=== PATIENT | male | born 1955 | race American Indian/Alaskan Native ===

== ENCOUNTER 2021-05-24 18:23 | Emergency (ER) | payer MEDICARE ==
[2021-05-24] MEDS ORDERED: LORazepam 1 MG TAB PO ONE (23:10)
--- NOTE | 2021-05-24 23:13 | Event Note ---
ED Screening Note Date of service: 05/24/21 Time: 23:11 ED Screening Note: Patient is a 66-year-old -[place] male with a history of hepatitis C and chronic seizures and who takes Dilantin and Tegretol presents to the ED with for evaluation after he had a witnessed single seizure episode at a gas station about 4 hours ago. Patient states that he had gone to the gas station to purchase some items when he developed seizures which was witnessed by the bystanders, and who called EMS to bring him to the ED for evaluation. Patient states that he has not taken his medications in the last 3 days after he was released from [facility] where he had been. Patient states that while in [facility], he was taking his medications but prior to being released he was never given any medications. Patient states that he has an appointment with his neurologist at [facility] on Wednesday, May 25, 2021 for further evaluation and to write him his prescriptions for seizures. Patient however denies headache, dizziness, syncope, chest pain, shortness of breath, fever, chills, nausea and vomiting, cough or abdominal pain, change in vision or head injury. This initial assessment/diagnostic orders/clinical plan/treatment(s) is/are subject to change based on patients health status, clinical progression and re- assessment by fellow clinical providers in the ED. Further treatment and workup at subsequent clinical providers discretion. Patient/guardian urged not to elope from the ED as their condition may be serious if not clinically assessed and managed. Initial orders include: CBC, CMP, Dilantin level, Dilantin 300 mg p.o. x1
[2021-05-24] MEDS ORDERED: PHENobarbitaL 130 MG/ML VIAL IV ONE (23:34)
[2021-05-24 23:37] LABS: Basophils # (Auto) 0.1 K/mm3 (0.0-0.1); Lymphocytes # (Auto) 2.5 K/mm3 (1.2-5.4); Lymphocytes % (Auto) 25.9 % (13.4-35.0); Mean Corpuscular HGB Conc 36 % (32-34); Mean Corpuscular Volume 92 fl (84-94); Monocytes # (Auto) 0.7 K/mm3 (0.0-0.8); Monocytes % (Auto) 6.9 % (0.0-7.3); Platelet Count 211 K/mm3 (140-440); Red Blood Count 5.49 M/mm3 (3.65-5.03); Red Cell Distribution Width 13.3 % (13.2-15.2)
--- NOTE | 2021-05-24 23:37 | Emergency Department Report ---
ED Seizure HPI - General Chief Complaint: Seizure Stated Complaint: POSS SEIZURE Time Seen by Provider: 05/24/21 23:30 Source: patient Mode of arrival: Ambulatory Limitations: No Limitations - History of Present Illness Initial Comments: Patient is 66 years old male with history of seizure on Dilantin 300 mg and phenobarbital 50 mg. Patient brought to the emergency room by a bystander after patient had a possible seizure at the grocery store. Patient stated that he was released from [facility] recently and he did not have his medication. Patient jose ed any injury. Patient also denied any fever or chills. Patient stated that he is back to normal. MD Complaint: seizure Description of Episode: loss of consciousness, tonic-clonic movement, post-event confusion Witnessed:: Yes Trauma: No Seizure History: known seizure disorder Place: street/outdoors Possible Precipitating Event: medication Treatments Prior to Arrival: none - Related Data Previous Rx's Medication Instructions Recorded Last Taken Type PHENobarbitaL [PHENobarbital] 60 mg PO DAILY #30 tablet 05/25/21 Unknown Rx Phenytoin [Dilantin] 100 mg PO Q8HR #90 capsule 05/25/21 Unknown Rx Allergies Allergy/AdvReac Type Severity Reaction Status Date / Time Penicillins Allergy Anaphylaxis Verified 05/24/21 18:44 acetaminophen [From Tylenol] AdvReac Unknown Verified 05/24/21 18:45 ibuprofen AdvReac Unknown Verified 05/24/21 18:44 ED Review of Systems ROS: Stated complaint: POSS SEIZURE Other details as noted in HPI Comment: All other systems reviewed and negative Constitutional: denies: chills, fever ENT: denies: throat pain Respiratory: denies: orthopnea, shortness of breath, SOB with exertion Cardiovascular: denies: chest pain, palpitations, dyspnea on exertion Genitourinary: denies: urgency, dysuria, frequency, hematuria, discharge Musculoskeletal: denies: back pain Neurological: denies: headache, weakness, numbness, paresthesias, confusion ED Past Medical Hx - Past Medical History Previous Medical History?: Yes Hx Seizures: Yes Additional medical history: Hepatitis C - Surgical History Past Surgical History?: Yes Additional Surgical History: LEFT foot and hip. - Social History Smoking Status: Never Smoker Substance Use Type: None - Medications Home Medications: Home Medications Medication Instructions Recorded Confirmed Last Taken Type PHENobarbitaL [PHENobarbital] 60 mg PO DAILY #30 tablet 05/25/21 Unknown Rx Phenytoin [Dilantin] 100 mg PO Q8HR #90 capsule 05/25/21 Unknown Rx ED Physical Exam - General Limitations: No Limitations General appearance: alert, in no apparent distress - Head Head exam: Present: atraumatic, normocephalic, normal inspection - Eye Eye exam: Present: normal appearance, PERRL - ENT ENT exam: Present: normal exam, normal orophraynx, mucous membranes moist - Neck Neck exam: Present: normal inspection, full ROM. Absent: tenderness, meningismus - Respiratory Respiratory exam: Present: normal lung sounds bilaterally - Cardiovascular Cardiovascular Exam: Present: regular rate, normal rhythm, normal heart sounds - GI/Abdominal GI/Abdominal exam: Present: soft, normal bowel sounds. Absent: distended, tenderness, guarding, rebound, rigid, organomegaly, mass, bruit, pulsatile mass, hernia - Extremities Exam Extremities exam: Present: normal inspection, full ROM, normal capillary refill. Absent: tenderness - Back Exam Back exam: Present: normal inspection, full ROM. Absent: CVA tenderness (R), CVA tenderness (L) - Psychiatric Psychiatric exam: Present: normal mood - Skin Skin exam: Present: warm, intact, normal color ED Course Vital Signs 05/24/21 18:48 Temperature 99.0 F Pulse Rate 103 H Respiratory 18 Rate Blood Pressure 148/88 [Right] O2 Sat by Pulse 98 Oximetry ED Medical Decision Making - Lab Data Result diagrams: 05/24/21 23:13 05/24/21 23:13 - Medical Decision Making Patient is 66 years old male with history of seizure on Dilantin 300 mg and phenobarbital 50 mg. Patient brought to the emergency room by a bystander after patient had a possible seizure at the grocery store. Patient stated that he was released from [facility] recently and he did not have his medication. Patient denied any injury. Patient also denied any fever or chills. Patient stated that he is back to normal. Labs reviewed and is unremarkable except for elevated liver enzymes consistent with his hepatitis C infection. Patient refused IV medication. Patient given Dilantin 300 mg and phenobarbital 50 mg. Patient observed in the ER for 3 hours. No seizure observed. Patient advised to follow-up with his neurologist in the next 2 to 3 days and to return to the ER if he develop any new symptoms. Critical care attestation.: If time is entered above; I have spent that time in minutes in the direct care of this critically ill patient, excluding procedure time. ED Disposition Clinical Impression: Seizure Disposition: DC-01 TO HOME OR SELFCARE Is pt being admited?: No Condition: Stable Instructions: Seizure, Adult, [id number] Prescriptions: Phenytoin [Dilantin] 100 mg PO Q8HR #90 capsule PHENobarbitaL [PHENobarbital] 60 mg PO DAILY #30 tablet
[2021-05-24] MEDS ORDERED: PHENYTOIN 1,000 MG in SODIUM CHLORIDE 0.9% 250ML 250 ML IV ONE (23:54)
[2021-05-24 23:56] LABS: Alanine Aminotransferase 106 units/L (7-56); Albumin 5.1 g/dL (3.9-5); BUN/Creatinine Ratio 14; Blood Urea Nitrogen 13 mg/dL (9-20); Calcium 9.8 mg/dL (8.4-10.2); Hemolysis Index 9
[2021-05-25 00:17] LABS: Hematocrit 50.5 % (35.5-45.6); Hemoglobin 17.9 gm/dl (11.8-15.2)
[2021-05-25] MEDS: PHENYTOIN 100 MG CAPSULE.ER PO ONE ×2 (00:30→00:41)
[2021-05-25] MEDS ORDERED: PHENYTOIN 100 MG CAPSULE.ER ONE (00:37)
[2021-05-25] MEDS ORDERED: PHENobarbital 15 MG TAB PO ONE (02:07)
[2021-05-25 05:41] VITALS: BP 141/85
== END 2021-05-25 05:40 | disposition home or self-care (01) ==
LOC: ED 18:23
DX: R56.9 Unspecified convulsions (principal); Z98.890 Other specified postprocedural states; Z79.899 Other long term (current) drug therapy; Z88.0 Allergy status to penicillin; Z88.8 Allergy status to other drugs, medicaments and biological substances
CPT/HCPCS: 36415; 80053; 80185; 85025; J1165; J7050

== ENCOUNTER 2021-05-30 18:50 | Emergency (ER) | payer MEDICARE | END 2021-05-30 18:55 | disposition left against medical advice (07) | LOC: ED 18:50 | DX: Z53.21 Procedure and treatment not carried out due to patient leaving prior to being seen by health care provider (principal) ==

== ENCOUNTER 2022-05-01 12:17 | Emergency (ER) | payer MEDICARE ==
--- NOTE | 2022-05-01 15:47 | Emergency Department Report ---
- General Chief complaint: Skin/Abscess/Foreign Body Stated complaint: PAIN FROM BOIL BI AXILLA Time Seen by Provider: 05/01/22 15:21 Source: patient Mode of arrival: Ambulatory Limitations: No Limitations - History of Present Illness Initial comments: 66-year-old black male with a past medical history of hepatitis C presents to the emergency department for evaluation of pain and swelling to bilateral axillary areas. He states that about 5 days ago he noted pain and swelling to the area secondary to abscess. He states that he put moist heat to the area and right side started to drain some purulent drainage but both sides remain painful and swollen. He states that he has not had this happen before. He denies fever. MD complaint: abscess/boil -: Gradual, days(s) Tetanus Up to Date: yes (5) Location: LUE (Axillary area), RUE (Axillary area) Severity: severe Severity scale (0 -10): 10 Quality: constant Consistency: constant Worsens with: palpation, movement Treatments Prior to Arrival: other (Warm compresses) - Related Data Previous Rx's Medication Instructions Recorded Last Taken Type PHENobarbitaL [PHENobarbital] 60 mg PO DAILY #30 tablet 05/25/21 Unknown Rx Phenytoin [Dilantin] 100 mg PO Q8HR #90 capsule 05/25/21 Unknown Rx DOXYCYCLINE Hyclate [Vibramycin] 100 mg PO BID #14 capsule 05/01/22 Unknown Rx traMADoL [Ultram] 50 mg PO Q6HR PRN #12 tablet 05/01/22 Unknown Rx Allergies Allergy/AdvReac Type Severity Reaction Status Date / Time Penicillins Allergy Anaphylaxis Verified 05/01/22 13:15 acetaminophen [From Tylenol] AdvReac Unknown Verified 05/01/22 13:15 ibuprofen AdvReac Unknown Verified 05/01/22 13:15 Abscess Boil HPI - HPI Chief Complaint: Skin/Abscess/Foreign Body Stated Complaint: PAIN FROM BOIL BI AXILLA Time Seen by Provider: 05/01/22 15:21 Duration: 5 Days Location: Lower Extremity History: Yes Pain, Yes Purulent Drainage, No Fever, No Numbness, No Foreign Body, No Previous History, No Insect Bite Home Medications: Previous Rx's Medication Instructions Recorded Last Taken Type PHENobarbitaL [PHENobarbital] 60 mg PO DAILY #30 tablet 05/25/21 Unknown Rx Phenytoin [Dilantin] 100 mg PO Q8HR #90 capsule 05/25/21 Unknown Rx DOXYCYCLINE Hyclate [Vibramycin] 100 mg PO BID #14 capsule 05/01/22 Unknown Rx traMADoL [Ultram] 50 mg PO Q6HR PRN #12 tablet 05/01/22 Unknown Rx Allergies/Adverse Reactions: Allergies Allergy/AdvReac Type Severity Reaction Status Date / Time Penicillins Allergy Anaphylaxis Verified 05/01/22 13:15 acetaminophen [From Tylenol] AdvReac Unknown Verified 05/01/22 13:15 ibuprofen AdvReac Unknown Verified 05/01/22 13:15 ED Review of Systems ROS: Stated complaint: PAIN FROM BOIL BI AXILLA Other details as noted in HPI Comment: All other systems reviewed and negative Constitutional: denies: chills, fever, malaise, weakness ENT: denies: congestion Respiratory: denies: shortness of breath Cardiovascular: denies: chest pain Gastrointestinal: denies: abdominal pain, nausea, vomiting Musculoskeletal: denies: back pain Neurological: denies: headache, weakness ED Past Medical Hx - Past Medical History Hx Seizures: Yes Additional medical history: Hepatitis C - Surgical History Additional Surgical History: LEFT foot and hip. - Social History Smoking Status: Never Smoker Substance Use Type: None - Medications Home Medications: Home Medications Medication Instructions Recorded Confirmed Last Taken Type PHENobarbitaL [PHENobarbital] 60 mg PO DAILY #30 tablet 05/25/21 Unknown Rx Phenytoin [Dilantin] 100 mg PO Q8HR #90 capsule 05/25/21 Unknown Rx DOXYCYCLINE Hyclate [Vibramycin] 100 mg PO BID #14 capsule 05/01/22 Unknown Rx traMADoL [Ultram] 50 mg PO Q6HR PRN #12 tablet 05/01/22 Unknown Rx ED Physical Exam - General Limitations: No Limitations General appearance: alert, in no apparent distress - Head Head exam: Present: atraumatic, normocephalic - Eye Eye exam: Present: normal appearance. Absent: conjunctival injection - Neck Neck exam: Present: normal inspection. Absent: tenderness, full ROM, lymphadenopathy - Respiratory Respiratory exam: Present: normal lung sounds bilaterally. Absent: respiratory distress, wheezes, rales, rhonchi, stridor, chest wall tenderness - Cardiovascular Cardiovascular Exam: Present: regular rate, normal heart sounds - GI/Abdominal GI/Abdominal exam: Present: soft, normal bowel sounds. Absent: distended, tenderness, guarding, rebound, rigid - Expanded Upper Extremity Exam Left General: Absent: normal inspection (Noted to have multiple abscesses to right axillary area and 1 larger one to left axillary area. Both noted to be erythematous and edematous but no drainage noted. Tender to any touch.) Vascular: Present: normal capillary refill. Absent: vascular compromise, Pallo, pulse deficit radial art - Back Exam Back exam: Present: normal inspection - Neurological Exam Neurological exam: Present: alert, oriented X3 - Psychiatric Psychiatric exam: Present: normal affect, normal mood - Skin Skin exam: Present: warm, dry, intact, normal color ED Course Vital Signs 05/01/22 05/01/22 13:12 16:04 Temperature 97.9 F 98.0 F Pulse Rate 61 66 Respiratory 16 16 Rate Blood Pressure 153/81 Blood Pressure 142/95 [Right] O2 Sat by Pulse 99 98 Oximetry ED Medical Decision Making - Medical Decision Making 66-year-old black male with a past medical history of hepatitis C presents to the emergency department for evaluation of pain and swelling to bilateral axillary areas. He states that about 5 days ago he noted pain and swelling to the area secondary to abscess. He states that he put moist heat to the area and right side started to drain some purulent drainage but both sides remain painful and swollen. He states that he has not had this happen before. He denies fever. Abscesses noted to bilateral axillary area, but abscesses are not fluctuant but are all firm. No drainage noted. Patient will be treated with 7-day course of doxycycline along with Ultram to use as needed for pain. He is advised to take medications as prescribed and follow-up with primary care provider if no improvement or worsening symptoms. He verbalizes understanding of and agreement with plan of care. Critical care attestation.: If time is entered above; I have spent that time in minutes in the direct care of this critically ill patient, excluding procedure time. ED Disposition Clinical Impression: Cutaneous abscesses of both axillae Disposition: HOME / SELF CARE / HOMELESS Is pt being admited?: No Does the pt Need Aspirin: No Condition: Stable Instructions: Skin Abscess, [id number] Additional Instructions: Take medications as prescribed. Follow-up with primary care provider for further evaluation and management. Return to the emergency department as needed. Prescriptions: traMADoL [Ultram] 50 mg PO Q6HR PRN #12 tablet PRN Reason: Pain DOXYCYCLINE Hyclate [Vibramycin] 100 mg PO BID #14 capsule Referrals: MANUEL VERDUGO MD [Staff Physician] - 3-5 Days Forms: Work/School Release Form(ED) Time of Disposition: 15:48
[2022-05-01 16:06] VITALS: BP 142/95
== END 2022-05-01 16:14 | disposition home or self-care (01) ==
LOC: ED 12:17
DX: L02.412 Cutaneous abscess of left axilla (principal); L02.411 Cutaneous abscess of right axilla; R56.9 Unspecified convulsions; Z88.6 Allergy status to analgesic agent; Z88.0 Allergy status to penicillin; Z91.09 Other allergy status, other than to drugs and biological substances; Z79.899 Other long term (current) drug therapy
CPT/HCPCS: 99282